=== PATIENT | female | born 1990 | race Caucasian/White ===

== ENCOUNTER 2018-12-20 13:12 | Emergency (ER) | payer OTHER ==
[~2018-12-20] VITALS: Ht 157.5 cm; Wt 99.8 kg
--- NOTE | 2018-12-20 13:20 | NUR ---
PT TO ER BED 2
[2018-12-20 13:25] VITALS: BP 133/74
--- NOTE | 2018-12-20 13:30 | NUR ---
PT STARTED NEW BIRTHCONTROL "SPRONYX" ON December AND HAS HAD HEAVY BLEEDING W/ CLOTS SINCE December. PT STATES SHE USES ABOUT 1 PAD A HOUR AND IT IS FULLY SATURATED. PMH: denies. .DENIES N/V/D; PATIENT STATES lower abd PAIN OF 4/10 AT THIS TIME; PATIENT POSITIONED FOR COMFORT; HOB ELEVATED; BEDRAILS UP X1; BED DOWN. ER MD MADE AWARE OF PT STATUS.
[2018-12-20 14:08] LABS: BASOPHILS % (AUTO) 0.6 % (0.0-2.0); EOSINOPHILS # (AUTO) 0.1 K/uL (0-0.4); EOSINOPHILS % (AUTO) 1.2 % (0.0-4.0); HEMATOCRIT 36.3 % (36-48); HEMOGLOBIN 12.2 g/dL (12.0-16.0); LYMPHOCYTES # (AUTO) 2.2 K/uL (2.5-16.5); LYMPHOCYTES % (AUTO) 31.5 % (20.5-51.1); MEAN CORPUSCULAR HEMOGLOBIN 29 pg (27-31); MEAN CORPUSCULAR HGB CONC 34 g/dL (33-37); MEAN CORPUSCULAR VOLUME 86.5 fL (80-94); MONOCYTES # (AUTO) 0.5 K/uL (0.8-1.0); MONOCYTES % (AUTO) 7.6 % (1.7-9.3); NEUTROPHILS # (AUTO) 4.1 K/uL (1.8-7.7); NEUTROPHILS % (AUTO) 59.1 % (42.2-75.2); PLATELET COUNT (AUTO) 318 K/uL (140-450); WHITE BLOOD COUNT (AUTO) 6.9 K/uL (4.8-10.8)
[2018-12-20 14:21] LABS: PROTHROMBIN TIME 9.4 secs (10.8-13.4)
[2018-12-20 16:00] VITALS: BP 128/76
--- NOTE | 2018-12-20 16:00 | NUR ---
Patient discharged with v/s stable. Written and verbal after care instructions given and explained. Patient verbalized understanding. Ambulatory with steady gait. All questions addressed prior to discharge. Advised to follow up with PMD.
== END 2018-12-20 16:00 | disposition home or self-care (01) ==
LOC: MED 13:12
DX: N93.8 Other specified abnormal uterine and vaginal bleeding (principal); R42 Dizziness and giddiness; M54.5 Low back pain
CPT/HCPCS: 36415; 76830; 81002; 81025; 84702; 85025; 85610; 85730; 99284; Q0092

== ENCOUNTER 2019-11-24 10:46 | Emergency (ER) | payer OTHER ==
[~2019-11-24] VITALS: Ht 157.5 cm; Wt 93.0 kg
[2019-11-24 10:51] VITALS: BP 132/87
--- NOTE | 2019-11-24 10:54 | NUR ---
PT AMBULATED TO ER BED 4
--- NOTE | 2019-11-24 10:56 | NUR ---
ERMD AT BEDSIDE
--- NOTE | 2019-11-24 11:03 | NUR ---
29 y/o f c/c right eye pain x this morning. denies trauma,foreign object on eye,use of contact lenses/glasses. pupils perrla, cn ii,iii,iv,vi wnl. pt nka. no hx. no rx. no nvd. side rail x1
--- NOTE | 2019-11-24 11:08 | NUR ---
Patient discharged with v/s stable. Written and verbal after care instructions given and explained. Patient alert, oriented and verbalized understanding of instructions. Ambulatory with steady gait. All questions addressed prior to discharge. ID band removed. Patient advised to follow up with PMD. Rx of ERYTHROMYCIN OPTHALMIC OINTMENT given. Patient educated on indication of medication including possible reaction and side effects; F/U WITH CLINICAL MASSAGE THERAPIST OR OPTHAMALOGIST IN 2-3 DAYS. Opportunity to ask questions provided and answered.
[2019-11-24 11:09] VITALS: BP 132/87
== END 2019-11-24 11:08 | disposition home or self-care (01) ==
LOC: MED 10:46
DX: H10.9 Unspecified conjunctivitis (principal); B96.89 Other specified bacterial agents as the cause of diseases classified elsewhere
CPT/HCPCS: 99283